=== PATIENT | female | born 1995 | race Caucasian/White ===

== ENCOUNTER → 2018-03-31 19:16 | Emergency (ER) | payer OTHER ==
[~2018-03-31 19:16] MED LIST: Iohexol 300* (CONTRAST) 10 ML SDV IV ONE; Morphine INJ* 4 MG/ML 1 ML SYRINGE (NEW SYRINGE VERSION) IV ONE; Morphine VIAL* 4 MG/ML VIAL (1 ml vial) IV ONE; cefTRIAXone(*) 1 GM in NS 0.9% 50 ML* 50 ML IVPB ONE
[2018-03-31 20:00] LABS: ABS Basophils 0.1 10^3/ul (0-0.2); ABS Eosinophils 0.1 10^3/ul (0-0.6); ABS Lymphocytes 2.6 10^3/ul (1.0-4.8); ABS Monocytes 0.8 10^3/ul (0-0.8); ABS Neutrophils 9.2 10^3/ul (1.5-7.7); ABS Nucleated RBC 0 10^3/ul; Hematocrit 40 % (35-47); Hemoglobin 13.4 g/dl (12.0-16.0); Lymphocyte % 20.2 % (25-47); Mean Corpuscular HGB Conc 33 g/dl (31-36); Mean Corpuscular Hemoglobin 30 pg (27-31); Mean Corpuscular Volume 90 fL (80-97); Mean Platelet Volume 7.5 um3 (7.4-10.4); Nucleated Red Blood Cells % 0; Platelet Count 344 10^3/ul (150-450); Red Blood Count 4.45 10^6/ul (4.00-5.40); Red Cell Distribution Width 13 % (10.5-15); White Blood Count 12.8 10^3/ul (3.5-10.8)
[2018-03-31 20:20] LABS: EGFR Non-African American 132.5 (>60)
--- NOTE | 2018-03-31 20:53 | ED ---
Abdominal Pain/Female - HPI Summary HPI Summary: This is a 22-year-old woman who comes to the emergency department with right- sided abdominal pain, starting this morning and gradually worsening. The pain is located in the right flank and radiating somewhat to the back and also a bit to the right lower quadrant of the abdomen. She has not had any urinary symptoms. There has been worsening of the pain with movement. She has had some nausea and vomiting associated with this. There was a prodrome of a couple of days of malaise and mild nausea, but no overt pain until this morning. She has no history of similar problems in the past, and has no past abdominal surgical history. - History of Current Complaint Chief Complaint: EDAbdPain Stated Complaint: RT SIDE ABD PAIN Pain Intensity: 8 Allergies/Adverse Reactions: Allergies Allergy/AdvReac Type Severity Reaction Status Date / Time No Known Allergies Allergy Verified 03/31/18 19:21 Home Medications: Home Medications Escitalopram Oxalate [Lexapro 10 mg] 15 mg PO DAILY 03/31/18 [History Confirmed 03/31/18] PMH/Surg Hx/FS Hx/Imm Hx Infectious Disease History: No Infectious Disease History: Denies: Traveled Outside the [place] in Last 30 Days Review of Systems Positive: Fatigue Eyes: Negative ENT: Negative Cardiovascular: Negative Respiratory: Negative Positive: Abdominal Pain, Vomiting. Negative: Diarrhea Negative: burning, dysuria, hematuria Skin: Negative Psychological: Normal All Other Systems Reviewed And Are Negative: Yes Physical Exam - Summary Physical Exam Summary: General: This is a well-developed, well- nourished white female lying on the stretcher in no apparent distress. The patient does not appear ill or toxic. HEENT:Extraocular movements are intact. Conjunctiva are normal without pallor. Pharynx is clear without exudate or swelling. Dentition is unremarkable. There is no sign of head trauma. Neck: Supple, no adenopathy noted. Lungs: Lungs are clear to auscultation. There are no signs of respiratory distress. Coronary: Peripheral perfusion is good. Heart sounds are regular, a normal S1 and S2 were auscultated. There is no gallop rhythm, nor any pathological sounded murmurs. Abdomen: The abdomen appears normal and is nondistended. Normoactive bowel sounds are present. On palpation, there is tenderness in the right lower quadrant, but no guarding or rebound. There is no hepatosplenomegaly, nor any masses. Genitourinary: Deferred Back: Good range of motion is observed. There are no surface abnormalities nor any scoliosis. There is no CVA tenderness. Extremities: Good range of motion was observed in all 4 extremities. There is no sign of any trauma to the extremities. Neurologic: The patient is awake and alert, speech is fluent in conversation is appropriate. There are no focal motor abnormalities. Cranial nerves are grossly intact. Deep tendon reflexes are 2+ and symmetric. There is no ataxia observed. Psychiatric. The patients affect is felt to be normal and appropriate. There is no sign of any hallucinations or delusions, or any other signs of psychosis. Vital Signs On Initial Exam: Initial Vitals Temp Pulse Resp BP Pulse Ox 36.9 C 68 16 129/76 99 03/31/18 19:18 03/31/18 19:18 03/31/18 19:18 03/31/18 19:18 03/31/18 19:18 Diagnostics - Vital Signs Vital Signs Temp Pulse Resp BP Pulse Ox 03/31/18 19:18 36.9 C 68 16 129/76 99 - Laboratory Lab Results: Lab Results 03/31/18 03/31/18 03/31/18 Range/Units 19:36 19:36 19:36 WBC 12.8 H (3.5-10.8) 10^3/ul RBC 4.45 (4.00-5.40) 10^6/ul Hgb 13.4 (12.0-16.0) g/dl Hct 40 (35-47) % MCV 90 (80-97) fL MCH 30 (27-31) pg MCHC 33 (31-36) g/dl RDW 13 (10.5-15) % Plt Count 344 (150-450) 10^3/ul MPV 7.5 (7.4-10.4) um3 Neut % (Auto) 71.8 (38-83) % Lymph % (Auto) 20.2 L (25-47) % [place] % (Auto) 6.5 (0-7) % Eos % (Auto) 1.0 (0-6) % Baso % (Auto) 0.5 (0-2) % Absolute Neuts (auto) 9.2 H (1.5-7.7) 10^3/ul Absolute Lymphs (auto) 2.6 (1.0-4.8) 10^3/ul Absolute Monos (auto) 0.8 (0-0.8) 10^3/ul Absolute Eos (auto) 0.1 (0-0.6) 10^3/ul Absolute Basos (auto) 0.1 (0-0.2) 10^3/ul Absolute Nucleated RBC 0 10^3/ul Nucleated RBC % 0 Sodium 139 (135-145) mmol/L Potassium 4.2 (3.5-5.0) mmol/L Chloride 104 (101-111) mmol/L Carbon Dioxide 28 (22-32) mmol/L Anion Gap 7 (2-11) mmol/L BUN 12 (6-24) mg/dL Creatinine 0.58 (0.51-0.95) mg/dL Est GFR ( Amer) 160.4 (>60) Est GFR (Non-Af Amer) 132.5 (>60) BUN/Creatinine Ratio 20.7 H (8-20) Glucose 98 (70-100) mg/dL Lactic Acid 0.8 (0.5-2.0) mmol/L Calcium 10.1 (8.6-10.3) mg/dL Total Bilirubin 0.30 (0.2-1.0) mg/dL AST 19 (13-39) U/L ALT 18 (7-52) U/L Alkaline Phosphatase 54 (34-104) U/L C-Reactive Protein 7.42 (<8.01) mg/L Total Protein 7.5 (6.4-8.9) g/dL Albumin 4.7 (3.2-5.2) g/dL Globulin 2.8 (2-4) g/dL Albumin/Globulin Ratio 1.7 (1-3) Lipase 24 (11.0-82.0) U/L Beta HCG, Quant < 0.60 mIU/mL Result Diagrams: 03/31/18 19:36 03/31/18 19:36 Lab Statement: Any lab studies that have been ordered have been reviewed, and results considered in the medical decision making process. Abdominal Pain Fem Course/Dx - Course Course Of Treatment: This is a young basically healthy woman with acute right lower quadrant pain, associated with some tenderness and mild leukocytosis. There is certainly enough suspicion here to warrant doing a CT scan of the abdomen to assess for appendicitis. Her urinalysis is also suggestive of urinary tract infection, but she does not have fever nor any CVA tenderness. I have seen cases of appendicitis where there was a positive urinalysis due to periappendiceal inflammation about the ureter, and given the diagnostic uncertainty here I would recommend proceeding with CT scan of the abdomen and pelvis. - Diagnoses Differential Diagnosis: Positive: Appendicitis, Ectopic , Irritable Bowel Syndrome, Ovarian Cyst, Pancreatitis, , Renal Colic, Urinary Tract Infection Provider Diagnoses: UTI (urinary tract infection) Discharge - Sign-Out/Discharge Documenting (check all that apply): Patient Departure - Discharge Plan Condition: Stable Disposition: HOME Prescriptions: Ibuprofen TAB* [Motrin TAB* 600 MG] 600 mg PO Q6H PRN #30 tab PRN Reason: Pain Levofloxacin TAB* [Levaquin TAB*] 500 mg PO DAILY #7 tab Patient Education Materials: Urinary Tract Infection in Women (ED) Referrals: [facility] [Provider Group] Additional Instructions: Return to the emergency department for any new or worsening symptoms. Follow up with [facility] (info provided) or your PCP in 1-2 days. - Billing Disposition and Condition Condition: STABLE Disposition: Home - Attestation Statements Document Initiated by Thanhibe: Yes Documenting Scribe: Jason Chilel Provider For Whom Chin is Documenting (Include Credential): Hugh Madsen MD Scribe Attestation: Jason Regalado scribed for Hugh Madsen MD on 04/02/18 at 1432. Scribe Documentation Reviewed: Yes Provider Attestation: The documentation as recorded by the Jason lara accurately reflects the service I personally performed and the decisions made by me, Hugh Madsen MD
[2018-03-31 20:54] LABS: Urine Appearance Clear; Urine Blood 2+ (Negative); Urine Color Yellow; Urine Ketones Negative (Negative); Urine Protein Negative (Negative); Urine Red Blood Cell 2+(6-10/hpf) (Absent); Urine Specific Gravity 1.006 (1.010-1.030); Urine Urobilinogen Negative (Negative); Urine White Blood Cell 3+(>20/hpf) (Absent)
[2018-03-31] MEDS: NS 0.9% 1000 ML* 2,000 ML IV ONE (21:26)
--- NOTE | 2018-03-31 22:55 | ED ---
Progress - Results/Orders Results/Orders: CT A/P: Findings of cystitis versus bladder underdistention. No additional findings to correlate with patient's symptomatology. Dr. Goodman has reviewed this report. Course/Dx - Course Course Of Treatment: This is a young basically healthy woman with acute right lower quadrant pain, associated with some tenderness and mild leukocytosis. There is certainly enough suspicion here to warrant doing a CT scan of the abdomen to assess for appendicitis. Her urinalysis is also suggestive of urinary tract infection, but she does not have fever nor any CVA tenderness. I have seen cases of appendicitis where there was a positive urinalysis due to periappendiceal inflammation about the ureter, and given the diagnostic uncertainty here I would recommend proceeding with CT scan of the abdomen and pelvis. CT A/P reveals Findings of cystitis versus bladder underdistention. No additional findings to correlate with patient's symptomatology. Ct consistant with cystitis. She has a UTI, will treat with abx and pain medication. - Diagnoses Provider Diagnoses: UTI (urinary tract infection) Discharge - Sign-Out/Discharge Documenting (check all that apply): Patient Departure - discharge, Receiving Sign-Out Receiving patient FROM: Hugh Madsen - Discharge Plan Condition: Stable Disposition: HOME Prescriptions: Ibuprofen TAB* [Motrin TAB* 600 MG] 600 mg PO Q6H PRN #30 tab PRN Reason: Pain Levofloxacin TAB* [Levaquin TAB*] 500 mg PO DAILY #7 tab Patient Education Materials: Urinary Tract Infection in Women (ED) Referrals: [facility] [Provider Group] Additional Instructions: Return to the emergency department for any new or worsening symptoms. Follow up with [facility] (info provided) or your PCP in 1-2 days. - Attestation Statements Document Initiated by Scribe: Yes Documenting Scribe: Aaron Lazcano Provider For Whom Scribe is Documenting (Include Credential): Dr. Luis Goodman MD Scribe Attestation: IAaron, scribed for Dr. Luis Goodman MD on 04/01/18 at 0146.
--- NOTE | 2018-03-31 23:47 | RAD ---
EXAM: CT Abdomen and Pelvis With Intravenous Contrast CLINICAL HISTORY: 22 years old, female; Pain; Abdominal pain; Generalized; Additional info: Rlq/r flank pain, ua+rbcs, wbcs, ? stone, pyelo, appy TECHNIQUE: Axial computed tomography images of the abdomen and pelvis with intravenous contrast. All CT scans at this facility use at least one of these dose optimization techniques: automated exposure control; mA and/or kV adjustment per patient size (includes targeted exams where dose is matched to clinical indication); or iterative reconstruction. Coronal and sagittal reformatted images were created and reviewed. CONTRAST: 88 mL of OMNI administered intravenously. COMPARISON: No relevant prior studies available. FINDINGS: Lung bases: Normal. No mass. No consolidation. ABDOMEN: Liver: Normal. No masses. Portal and hepatic veins are patent. Gallbladder and bile ducts: Normal. No radiopaque calculi. No ductal dilation. Pancreas: Normal. No mass. No ductal dilation. Spleen: Normal. No splenomegaly. Adrenals: Normal. No mass. Kidneys and ureters: No renal solid cortical lesions, calculi, or pelvocaliectasis. Stomach and bowel: Incompletely distended grossly normal stomach. Normal caliber small bowel. No colonic masses or segmental wall thickening. PELVIS: Appendix: Normal caliber appendix without wall thickening or adjacent inflammation. Bladder: Mildly thick walled urinary bladder without perivesicular stranding. Reproductive: Uterus and ovaries are normal. Corpus luteal cyst right ovary. ABDOMEN and PELVIS: Intraperitoneal space: Normal. No pneumoperitoneum. No ascities. Bones/joints: No fractures. No suspicious bone lesions. Soft tissues: Normal. No hernias. Vasculature: Normal caliber aorta with no evidence of dissection or rupture. Patent IVC. Lymph nodes: Normal. No enlarged lymph nodes. IMPRESSION: Findings of cystitis versus bladder underdistention. No additional findings to correlate with patient's symptomatology. To contact [facility] with a general question: [facility] - [phone] For direct physician to physician contact: Physician Hotline - [phone] [facility] ([facility] Facility ID #[id number])
[2018-04-01 02:00] VITALS: BP 124/74
== END | disposition home or self-care (01) ==
LOC: ED 19:16
DX: N39.0 Urinary tract infection, site not specified (principal); R10.31 Right lower quadrant pain
CPT/HCPCS: 36415; 74177; 80053; 81003; 81015; 83605; 83690; 84702; 85025; 86140; 87077; 87086; 87186; 96374; 99284; J0696; J2270; Q9967